=== PATIENT | male | born 1950 | race Caucasian/White ===

== ENCOUNTER 2018-05-02 09:29 | Day surgery (SDC) | payer OTHER ==
[2018-05-01 15:17] LABS: BASOPHILS # (AUTO) 0.1 X10'3 (0-0.2); BASOPHILS % (AUTO) 0.9 % (0-1); EOSINOPHILS # (AUTO) 0.6 X10'3 (0-0.9); EOSINOPHILS % (AUTO) 8.6 % (0-6); HEMATOCRIT 37.4 % (42.0-52.0); HEMOGLOBIN 12.7 g/dl (14.0-17.9); LYMPHOCYTES # (AUTO) 0.6 X10'3 (1.1-4.8); LYMPHOCYTES % (AUTO) 9.6 % (21-51); MEAN CORPUSCULAR HEMOGLOBIN 28.9 PG (27.0-31.0); MEAN CORPUSCULAR HGB CONC 33.9 % (33.0-36.5); MEAN CORPUSCULAR VOLUME 85.1 FL (78-98); MEAN PLATELET VOLUME 8.9 FL (7.4-10.4); MONOCYTES # (AUTO) 0.5 X10'3 (0-0.9); MONOCYTES % (AUTO) 8.2 % (2-12); NEUTROPHILS # (AUTO) 4.7 X10'3 (1.8-7.7); NEUTROPHILS % (AUTO) 72.7 % (42-75); PLATELET COUNT 197 X10'3 (140-440); RED BLOOD COUNT 4.39 X10'6 (4.70-6.10); RED CELL DISTRIBUTION WIDTH 17.9 % (11.5-14.5); WHITE BLOOD COUNT 6.4 X10'3 (4.5-11.0)
[2018-05-01 15:30] LABS: INR 1.1 INR; PARTIAL THROMBOPLASTIN TIME 25 SECONDS (22-32); PROTHROMBIN TIME 11.3 SECONDS (9.0-12.0)
[2018-05-01 15:36] LABS: ALBUMIN 3.4 G/DL (3.4-5.0); ANION GAP 9 (8-16); BLOOD UREA NITROGEN 15 MG/DL (7-18); BUN/CREATININE RATIO 12.9 (5.4-32.0); CALCIUM 9.2 MG/DL (8.5-10.1); CHLORIDE 102 MMOL/L (99-107); CREATININE 1.16 MG/DL (0.60-1.10); GLUCOSE 193 MG/DL (70-104); POTASSIUM 3.8 MMOL/L (3.5-5.1); SODIUM 141 MMOL/L (135-145); TOTAL CARBON DIOXIDE 29.8 MMOL/L (24-32); eGFR 63 ML/MIN
[~2018-05-02] VITALS: Ht 177.8 cm; Wt 118.3 kg
[2018-05-02] VITALS (11 sets, daily range): BP systolic 128–155; BP diastolic 39–84
[2018-05-02] MEDS ORDERED: LEVO137T2 PO (10:28)
[2018-05-02] MEDS ORDERED: INSU100V30 SQ (10:28)
[2018-05-02] MEDS ORDERED: NITR0.4T51 SL (10:28)
[2018-05-02] MEDS ORDERED: ATOR80TA PO (10:28)
[2018-05-02] MEDS ORDERED: CYA500T PO (10:28)
[2018-05-02] MEDS ORDERED: LATA7.5D OP (10:28)
[2018-05-02] MEDS ORDERED: RANO500T3 PO (10:28)
[2018-05-02] MEDS ORDERED: MAGN420T PO (10:28)
[2018-05-02] MEDS ORDERED: ISOS30TA9 PO (10:28)
[2018-05-02] MEDS ORDERED: METF750T PO (10:28)
[2018-05-02] MEDS ORDERED: LISI-600 PO (10:28)
[2018-05-02] MEDS ORDERED: FURO-149 PO (10:28)
[2018-05-02] MEDS ORDERED: AMLO10TA PO (10:28)
[2018-05-02] MEDS ORDERED: METO-384 PO (10:28)
[2018-05-02] MEDS ORDERED: POTA20TA10 PO (10:28)
[2018-05-02] MEDS ORDERED: normal saline 1000ml 1,000 ML IV SCH (11:20)
[2018-05-02] MEDS ORDERED: diphenhydrAMINE 25mg capsule PO PRN (11:20)
[2018-05-02] MEDS ORDERED: LORazepam 0.5 MG tablet PO PRN (11:20)
[2018-05-02] MEDS ORDERED: heparin 1,000unit/ml 10ml vial 10 ML ONE (12:10)
[2018-05-02] MEDS ORDERED: nitroGLYCERIN-Tridil 50MG/D5W 250 ML IV ONE (12:10)
[2018-05-02] MEDS ORDERED: iohexol 350MG/ML 100ml bottle IV ONE (12:10)
[2018-05-02] MEDS ORDERED: iohexol 350 MG/ML 50ML vial IV ONE ×2 (12:10→13:10)
[2018-05-02] MEDS ORDERED: LIDOcaine 1% 30ml preserv. free vial ONE (12:20)
[2018-05-02] MEDS ORDERED: midazolam 2 mg/2 ml injection ONE (12:43)
[2018-05-02] MEDS ORDERED: fentaNYL/PF 50MCG/1 ML 2ML syringe ONE (12:44)
[2018-05-02 13:41] LABS: ISTAT HGB ART 11.6 g/dl (14.0-18.0); ISTAT Hct ART 34 %PCV (42-52); ISTAT O2 SATURATION ARTERIAL 51 % (95-98); ISTAT SOURCE ART
[2018-05-02 14:25] LABS: ISTAT HGB ART 11.6 g/dl (14.0-18.0); ISTAT Hct ART 34 %PCV (42-52); ISTAT O2 SATURATION ARTERIAL 90 % (95-98); ISTAT SOURCE ART
[2018-05-02] MEDS ORDERED: furosemide 20MG tablet PO ONE (14:25)
[2018-05-02] MEDS ORDERED: furosemide 40mg/4ml inj IV ONE ×2 (14:25→15:45)
[2018-05-02] MEDS ORDERED: acetylcysteine 200 MG/ml 4ml vial ONE (14:33)
[2018-05-02] MEDS ORDERED: furosemide 40mg tablet PO ONE (14:55)
[2018-05-02] MEDS ORDERED: potassium Cl 20 mEq SR tablet PO ONE ×2 (15:25→15:45)
[2018-05-02] MEDS ORDERED: acetylcysteine 200 MG/ml 4ml vial PO SCH (20:00)
== END 2018-05-02 19:50 | disposition home or self-care (01) ==
LOC: SSTAY O 09:29
PROVIDERS: ATTEND Internal Medicine Cardiovascular Disease
DX: I25.708 Atherosclerosis of coronary artery bypass graft(s), unspecified, with other forms of angina pectoris (principal); E11.9 Type 2 diabetes mellitus without complications; I11.0 Hypertensive heart disease with heart failure; I50.30 Unspecified diastolic (congestive) heart failure; E66.9 Obesity, unspecified; E78.5 Hyperlipidemia, unspecified; K21.9 Gastro-esophageal reflux disease without esophagitis; E05.90 Thyrotoxicosis, unspecified without thyrotoxic crisis or storm; Z68.37 Body mass index [BMI] 37.0-37.9, adult; Z87.891 Personal history of nicotine dependence; Z90.89 Acquired absence of other organs; Z72.89 Other problems related to lifestyle; Z79.4 Long term (current) use of insulin; Z95.1 Presence of aortocoronary bypass graft; Z79.84 Long term (current) use of oral hypoglycemic drugs; Z79.899 Other long term (current) drug therapy; Z98.890 Other specified postprocedural states
CPT/HCPCS: 36415; 80048; 82803; 82948; 85014; 85025; 85610; 85730; 93005; 93461; 93567; 99152; 99153; C1760; C1769; J1644; J1940; J2250; J3010; J3490; J7030; Q0163; Q9967